=== PATIENT | female | born 1985 ===

== ENCOUNTER 2018-12-08 14:25 | Emergency (ER) | payer OTHER ==
[2018-12-08 15:39] VITALS: BP 130/87
--- NOTE | 2018-12-08 15:52 | UC ---
Throat Pain/Nasal Jassi HPI - HPI Summary HPI Summary: 33-year-old female who had cold symptoms Friday and Friday and Friday everything was normal and then yesterday she started with head congestion, runny nose and sinus pressure. She does have a history of seasonal allergies. - History of Current Complaint Chief Complaint: UCGeneralIllness Stated Complaint: SINUS COMPLAINT,COUGH Time Seen by Provider: 12/08/18 15:33 Hx Obtained From: Patient Hx Last Menstrual Period: current ?: No Onset/Duration: Gradual Onset Severity: Mild Pain Intensity: 7 Cough: Nonproductive Associated Signs & Symptoms: Positive: Sinus Discomfort, Nasal Discharge - Allergies/Home Medications Allergies/Adverse Reactions: Allergies Allergy/AdvReac Type Severity Reaction Status Date / Time morphine Allergy Itching Verified 12/08/18 15:40 Home Medications: Home Medications Etonogest/Eth.estradiol (Nf) [Nuvaring Vaginal Ring] 1 each VAGINAL .SEE COMMENTS 12/08/18 [History Confirmed 12/08/18] PMH/Surg Hx/FS Hx/Imm Hx Previously Healthy: Yes - Surgical History Surgical History: Yes Surgery Procedure, Year, and Place: 2 c-sections - Family History Known Family History: Positive: Non-Contributory - Social History Occupation: Employed Full-time Lives: With Family Alcohol Use: Occasionally Substance Use Type: None Smoking Status (MU): Never Smoked Tobacco Review of Systems All Other Systems Reviewed And Are Negative: Yes ENT: Positive: Nasal Discharge, Sinus Congestion, Sinus Pain/Tenderness Respiratory: Positive: Cough - Nonproductive cough. Is Patient Immunocompromised?: No Physical Exam Triage Information Reviewed: Yes Appearance: Well-Appearing, No Pain Distress, Well-Nourished Vital Signs: Initial Vital Signs Temp 98.7 F 12/08/18 15:35 Pulse 81 12/08/18 15:35 Resp 18 12/08/18 15:35 BP 130/87 12/08/18 15:35 Pulse Ox 99 12/08/18 15:35 Vital Signs Reviewed: Yes Eyes: Positive: Conjunctiva Clear ENT: Positive: Pharynx normal, Nasal congestion, Nasal drainage - Clear nasal coryza., TMs normal, Uvula midline Neck: Positive: Supple, Nontender, No Lymphadenopathy Respiratory: Positive: Lungs clear, Normal breath sounds, No respiratory distress, No accessory muscle use Cardiovascular: Positive: RRR, No Murmur, Pulses Normal, Brisk Capillary Refill Musculoskeletal Exam: Normal Neurological Exam: Normal Psychological Exam: Normal Skin Exam: Normal Throat Pain/Nasal Course/Dx - Course Course Of Treatment: At this point time I think the patient has an upper respiratory viral illness. 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 Because of her seasonal allergy history I am going to give her Flonase to try 2 sprays in each nostril once a day for a week and then decrease to 1 spray in each nostril once a day for a week. She is to follow up at [facility] in 4 or 5 days if no improvement. The patient states she had some chest discomfort with coughing and I offered to do a chest x-ray but she declined at this point in time. - Differential Dx/Diagnosis Provider Diagnosis: URI (upper respiratory infection) Discharge ED - Sign-Out/Discharge Documenting (check all that apply): Patient Departure All imaging exams completed and their final reports reviewed: No Studies - Discharge Plan Condition: Good Disposition: HOME Prescriptions: Fluticasone NASAL SPRAY 50MCG* [Flonase NASAL SPRAY 50MCG*] 2 spray BOTH NARES DAILY 7 Days #1 btl Patient Education Materials: Upper Respiratory Infection (DC) Referrals: No Primary Care Phys,NOPCP [Primary Care Provider] - [facility] [Outside] Additional Instructions: Increase fluids, follow-up with your primary care provider or [facility] if no improvement in 4 or 5 days. - Billing Disposition and Condition Condition: GOOD Disposition: Home
== END 2018-12-08 16:03 | disposition home or self-care (01) ==
LOC: UCCORT 14:25
DX: J06.9 Acute upper respiratory infection, unspecified (principal); Z88.5 Allergy status to narcotic agent
CPT/HCPCS: 99212; G0463